=== PATIENT | female | born 1970 | race Caucasian/White ===

== ENCOUNTER 2016-08-01 17:44 | Emergency (ER) | payer BC | END 2016-08-01 19:48 | disposition home or self-care (01) | LOC: ER 17:44 | DX: R07.9 Chest pain, unspecified (principal); J32.9 Chronic sinusitis, unspecified; F17.210 Nicotine dependence, cigarettes, uncomplicated; Z79.899 Other long term (current) drug therapy | CPT/HCPCS: 36415 ==